=== PATIENT | male | born 1985 | race Caucasian/White ===

== ENCOUNTER → 2017-06-10 | Outpatient (CLI) | payer BC ==
[2017-06-15 08:06] LABS: F003-IGE CODFISH <0.10 kU/L (Class 0); F024-IGE SHRIMP 0.14 kU/L (Class 0/I); F037-IGE MUSSEL <0.10 kU/L (Class 0); F040-IGE TUNA <0.10 kU/L (Class 0); F041-IGE SALMON <0.10 kU/L (Class 0); F080-IGE LOBSTER 0.12 kU/L (Class 0/I); F207-IGE CLAM <0.10 kU/L (Class 0); F258-IGE SQUID <0.10 kU/L (Class 0); F290-IGE OYSTER <0.10 kU/L (Class 0); F338-IGE SCALLOP 0.11 kU/L (Class 0/I)
== END ==
LOC: M SMT 10:04
DX: Z91.013 Allergy to seafood (principal)
CPT/HCPCS: 82785

== ENCOUNTER → 2019-12-26 | Outpatient (REF) | payer BC | LOC: M LAB REF 10:58 | PROVIDERS: ATTEND Physician Assistant | DX: R35.0 Frequency of micturition (principal) ==

== ENCOUNTER → 2020-02-13 | Outpatient (REF) | payer BC | LOC: M LAB REF 12:07 | PROVIDERS: ATTEND Physician Assistant | DX: Z20.828 Contact with and (suspected) exposure to other viral communicable diseases (principal); J02.9 Acute pharyngitis, unspecified ==

== ENCOUNTER → 2023-09-03 | Outpatient (REF) | payer BC | LOC: M SFHCDERM 17:00 | PROVIDERS: ATTEND Physician Assistant | DX: D23.5 Other benign neoplasm of skin of trunk (principal) ==